=== PATIENT | female | born 2000 | race American Indian/Alaskan Native ===

== ENCOUNTER 2019-01-17 11:48 | Emergency (ER) | payer BC ==
[2019-01-17] MEDS ORDERED: IBUPROFEN 600 MG TAB PO ONE (13:09)
--- NOTE | 2019-01-17 13:11 | Event Note ---
ED Screening Note Date of service: 01/17/19 Time: 13:08 ED Screening Note: 18 y/o female comes in for fever body aches right lower abd pain and urinary frequency times 2 day. This initial assessment/diagnostic orders/clinical plan/treatment(s) is/are subject to change based on patients health status, clinical progression and re- assessment by fellow clinical providers in the ED. Further treatment and workup at subsequent clinical providers discretion. Patient/guardian urged not to elope from the ED as their condition may be serious if not clinically assessed and managed. Initial orders include:
[2019-01-17] MEDS ORDERED: SODIUM CHLORIDE 0.9% 1000 ML 1,000 ML IV ONE (13:53)
--- NOTE | 2019-01-17 13:54 | Emergency Department Report ---
HPI - General Chief Complaint: Fever Time Seen by Provider: 01/17/19 13:07 - HPI HPI: 18 YO COMES TO ER WITH 3 DAY HX OF MUCkLE ACHES AND PAINS. SHE VOMITING LAST NIGHT. SHE HAS FEVER ON ADMIT TO ER. NO COUGH PER PT. NO ABD PAIN. POS HEAD ACHE. NO VAG DC OR BLEEDING. LMP 4 DAYS AGO. NO DYSURIA. DOES STATE MY BACK JUST HURTS WITH ACHING. NOT CONCERNED FOR STI OR PREG ED Past Medical Hx - Past Medical History Previous Medical History?: No Hx Hypertension: No Hx CVA: No Hx Heart Attack/AMI: No Hx Congestive Heart Failure: No Hx Diabetes: No Hx Deep Vein Thrombosis: No Hx Pulmonary Embolism: No Hx GERD: No Hx Liver Disease: No Hx Renal Disease: No Hx of Cancer: No Hx Sickle Cell Disease: No Hx Arthritis: No Hx Headaches / Migraines: No Hx Seizures: No Hx Kidney Stones: No Hx Psychiatric Treatment: No Hx Asthma: No Hx COPD: No Hx Tuberculosis: No Hx Dementia: No Hx HIV: No - Surgical History Past Surgical History?: No Hx Coronary Stent: No Hx Open Heart Surgery: No Hx Pacemaker: No Hx Internal Defibrillator: No Hx Cholecystectomy: No Hx Appendectomy: No Hx Breast Surgery: No - Family History Family history: no significant - Social History Smoking Status: Current Every Day Smoker Substance Use Type: Marijuana - Medications Home Medications: Home Medications Medication Instructions Recorded Confirmed Last Taken Type Fluconazole [Diflucan TAB] 100 mg PO QDAY #1 tablet 01/17/19 Unknown Rx Ibuprofen [Motrin] 800 mg PO Q8HR PRN #30 tablet 01/17/19 Unknown Rx Ondansetron [Zofran Odt] 4 mg PO Q8HR PRN #10 tab.rapdis 01/17/19 Unknown Rx Sulfamethoxazole/Trimethoprim 1 each PO BID #10 tablet 01/17/19 Unknown Rx [Bactrim DS TAB] ED Review of Systems ROS: Stated complaint: NILO/HEADACHE/VOMITING Other details as noted in HPI Comment: All other systems reviewed and negative Physical Exam - Physical Exam Vital Signs: Vital Signs 01/17/19 01/17/19 12:07 13:13 Temperature 101.8 F H Pulse Rate 127 H Respiratory 16 18 Rate Blood Pressure 126/68 O2 Sat by Pulse 97 Oximetry Physical Exam: ALERT AND ORIENTED NO FOCAL DEFICIT S1S2 TACHYCARDIA LUNGS CTA ABD SNT POS L CVA TENDERNESS NO N/V IN ER AMBULATORY TAKING PO perrl mood and affect appropriate full ROM of all joints ED Course Vital Signs 01/17/19 01/17/19 12:07 13:13 Temperature 101.8 F H Pulse Rate 127 H Respiratory 16 18 Rate Blood Pressure 126/68 O2 Sat by Pulse 97 Oximetry ED Medical Decision Making - Lab Data Result diagrams: 01/17/19 13:38 01/17/19 13:38 - Radiology Data Radiology results: report reviewed, image reviewed - Medical Decision Making Vital Signs 01/17/19 01/17/19 12:07 13:13 Temperature 101.8 F H Pulse Rate 127 H Respiratory 16 18 Rate Blood Pressure 126/68 O2 Sat by Pulse 97 Oximetry Labs 01/17/19 01/17/19 01/17/19 13:38 13:38 13:38 WBC 16.4 H RBC 4.97 Hgb 12.2 Hct 38.2 MCV 77 L MCH 25 L MCHC 32 RDW 14.5 Plt Count 239 Lymph % (Auto) 9.2 L [place] % (Auto) 8.6 H Eos % (Auto) 0.0 Baso % (Auto) 0.2 Lymph # 1.5 [place] # 1.4 H Eos # 0.0 Baso # 0.0 Seg Neutrophils % 82.0 H Seg Neutrophils # 13.4 H Sodium 136 L Potassium 3.7 Chloride 97.6 L Carbon Dioxide 25 Anion Gap 17 BUN 10 Creatinine 0.8 Estimated GFR > 60 BUN/Creatinine Ratio 13 Glucose 105 H Calcium 9.4 Total Bilirubin 1.30 H AST 11 ALT 9 Alkaline Phosphatase 79 Total Protein 8.3 H Albumin 4.2 Albumin/Globulin Ratio 1.0 Lipase 18 HCG, Qual Negative Urine Color Urine Turbidity Urine pH Ur Specific [place] Urine Protein Urine Glucose (UA) Urine Ketones Urine Blood Urine Nitrite Urine Bilirubin Urine Urobilinogen Ur Leukocyte Esterase Urine WBC (Auto) Urine RBC (Auto) U Epithel Cells (Auto) Urine Bacteria (Auto) 01/17/19 14:58 WBC RBC Hgb Hct MCV MCH MCHC RDW Plt Count Lymph % (Auto) [place] % (Auto) Eos % (Auto) Baso % (Auto) Lymph # [place] # Eos # Baso # Seg Neutrophils % Seg Neutrophils # Sodium Potassium Chloride Carbon Dioxide Anion Gap BUN Creatinine Estimated GFR BUN/Creatinine Ratio Glucose Calcium Total Bilirubin AST ALT Alkaline Phosphatase Total Protein Albumin Albumin/Globulin Ratio Lipase HCG, Qual Urine Color Roxy Urine Turbidity Turbid Urine pH 5.0 Ur Specific [place] 1.016 Urine Protein 100 mg/dl Urine Glucose (UA) Neg Urine Ketones 20 Urine Blood Sm Urine Nitrite Pos Urine Bilirubin Neg Urine Urobilinogen 2.0 Ur Leukocyte Esterase Mod Urine WBC (Auto) > 182.0 H Urine RBC (Auto) 18.0 U Epithel Cells (Auto) 5.0 Urine Bacteria (Auto) 2+ NO COUGH NO SINUS PAIN NO SORE THROAT OR TOOTH ABD SNT POS CVA TENDERNESS NO VAG DC OR BLEEDING; LMP 4 DAYS AGO NO VOMITING IN ER UA NOTED POS WBC AND NITRATES NS 1L/ROCEPHIN/ZOFRAN AND TORADOL/MOTRIN FOR FEVER TAKING PO DC HOME WITH DC PLAN OF CARE AND PCP FOLLOW UP On dc taking PO without difficulty; ambulatory; no back pain; no abd pain. urinating with normalizing vs Vital Signs 01/17/19 01/17/19 01/17/19 12:07 13:13 16:44 Temperature 101.8 F H 98.0 F Pulse Rate 127 H 103 H Respiratory 16 18 18 Rate Blood Pressure 126/68 Blood Pressure 118/67 [Left] O2 Sat by Pulse 97 100 Oximetry - Differential Diagnosis INFECTION - URINARY/ABD/RESP Critical care attestation.: If time is entered above; I have spent that time in minutes in the direct care of this critically ill patient, excluding procedure time. ED Disposition Clinical Impression: Pyelonephritis, Fever Disposition: DC-01 TO HOME OR SELFCARE Is pt being admited?: No Condition: Stable Instructions: Acute Pyelonephritis (ED) Additional Instructions: MEDS ORDERED TODAY HYDRATE WELL WITH WATER FOLLOW UP WITH PCP TO BE SURE THIS IS GETTING BETTER IT IS A SIGNIFICANT INFECTION DIET AND ACTIVITY TOLERATED Prescriptions: Sulfamethoxazole/Trimethoprim [Bactrim DS TAB] 1 each PO BID #10 tablet Fluconazole [Diflucan TAB] 100 mg PO QDAY #1 tablet Ibuprofen [Motrin] 800 mg PO Q8HR PRN #30 tablet PRN Reason: Pain, Moderate (4-6) Ondansetron [Zofran Odt] 4 mg PO Q8HR PRN #10 tab.rapdis PRN Reason: Vomiting Referrals: PRIMARY CARE, [Primary Care Provider] - 3-5 Days Forms: Work/School Release Form(ED) Time of Disposition: 15:56
[2019-01-17 14:11] LABS: Basophils % (Auto) 0.2 % (0.0-1.8); Hematocrit 38.2 % (30.3-42.9); Hemoglobin 12.2 gm/dl (10.1-14.3); Lymphocytes # (Auto) 1.5 K/mm3 (1.2-5.4); Lymphocytes % (Auto) 9.2 % (13.4-35.0); Mean Corpuscular HGB Conc 32 % (30-34); Mean Corpuscular Volume 77 fl (79-97); Monocytes # (Auto) 1.4 K/mm3 (0.0-0.8); Monocytes % (Auto) 8.6 % (0.0-7.3); Platelet Count 239 K/mm3 (140-440); Red Blood Count 4.97 M/mm3 (3.65-5.03); Red Cell Distribution Width 14.5 % (13.2-15.2)
[2019-01-17 14:25] LABS: Alanine Aminotransferase 9 units/L (7-56); Albumin 4.2 g/dL (3.9-5); BUN/Creatinine Ratio 13; Blood Urea Nitrogen 10 mg/dL (7-17); Calcium 9.4 mg/dL (8.4-10.2); Hemolysis Index 0
[2019-01-17 15:12] LABS: Bilirubin,Urine NEG (Negative); Blood,Urine SM (Negative); Color,Urine Amber (Yellow)
[2019-01-17 15:13] LABS: Bacteria,Urine 2+ /HPF (Negative)
[2019-01-17] MEDS ORDERED: cefTRIAXone/NS 1 GM/50 ML 1 GM/50 ML BAG IV ONE (15:14)
--- NOTE | 2019-01-17 15:15 | XRay Report ---
CHEST 2 VIEWS INDICATION: fever. COMPARISON: None FINDINGS: Support devices: None. Heart: Within normal limits. Lungs/pleura: No acute air space or interstitial disease. No pneumothorax. Additional findings: None. IMPRESSION: No acute findings. Signer Name: Jeffrey Tony Jr, MD Signed: 01/17/2019 3:10 PM Workstation Name: [id number]
[2019-01-17 15:17] LABS: WBC,Urine > 182.0 /HPF (0.0-6.0)
[2019-01-17] MEDS ORDERED: KETOROLAC 30 MG/1 ML INJ IV ONE (15:55)
[2019-01-17 16:45] VITALS: BP 118/67
== END 2019-01-17 17:41 | disposition home or self-care (01) ==
LOC: ED 11:48
DX: N12 Tubulo-interstitial nephritis, not specified as acute or chronic (principal); F17.200 Nicotine dependence, unspecified, uncomplicated
CPT/HCPCS: 36415; 71046; 80053; 81001; 83690; 84703; 85025; 96361; 96365; 96375; 99284; J0696; J1885; J7030